=== PATIENT | female | born 2000 | race Caucasian/White ===

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

== ENCOUNTER 2020-02-02 02:16 | Emergency (ER) | payer BC, MEDICAID ==
[2020-02-02] MEDS ORDERED: LIDOCAINE (1%) 10 MG/1 ML VIAL 20 ML MDV INFILTRATI ONE (10:24)
--- NOTE | 2020-02-02 11:02 | Emergency Department Report ---
- General Chief Complaint: Wound/Laceration Stated Complaint: LT ARM INJURY Time Seen by Provider: 02/02/20 10:16 Source: patient Mode of arrival: Ambulatory Limitations: No Limitations - History of Present Illness Initial Comments: Patient is a 19-year-old female presents emergency room with complaints of a laceration to the left forearm that occurred around 12 AM. She states that she was cooking in the kitchen and accidentally cut herself with a kitchen knife. She states initially there was bleeding but it improved after she placed some gauze. She denies any numbness or weakness. She denies any foreign body sensation. She is able to move the arm and fingers that any difficulty. Patient denies any past medical history. No allergies to medications. She states that she was unsure of her last tetanus immunization but upon chart review she had a tdap in 2019. - Related Data Home Medications Medication Instructions Recorded Confirmed Last Taken Pnv No.95/Ferrous Fum/Folic AC 1 tab PO DAILY 05/08/18 05/08/18 Unknown [ Vitamins Tablet] Previous Rx's Medication Instructions Recorded Last Taken Type Ferrous Sulfate [Feosol 325 MG tab] 325 mg PO BID #60 tablet 05/09/18 Unknown Rx Ibuprofen [Motrin 600 MG tab] 600 mg PO Q6HR #30 tablet 05/09/18 Unknown Rx Vit-Fe Fumar-FA [ 1 each PO QDAY #30 tablet 05/09/18 Unknown Rx Vitamin] cephALEXin [Keflex] 500 mg PO Q12HR #10 cap 05/13/18 Unknown Rx cephALEXin [Keflex] 500 mg PO Q6HR #16 capsule 05/13/18 Unknown Rx Acetaminophen [Acetaminophen TAB] 500 mg PO Q6HR PRN #30 tablet 08/24/19 Unknown Rx Dicyclomine [Bentyl] 20 mg PO Q6H PRN #24 tablet 10/25/19 Unknown Rx Famotidine [Pepcid] 20 mg PO BID #60 tablet 10/25/19 Unknown Rx Ondansetron [Zofran ODT TAB] 4 mg PO Q6HR PRN #20 tab.rapdis 10/25/19 Unknown Rx Amoxicillin/Potassium Clav 1 each PO BID #10 tablet 11/05/19 Unknown Rx [Augmentin 875-125 Tablet] HYDROcodone/APAP 5-325 [[place] 1 each PO Q4H PRN #15 tablet 11/05/19 Unknown Rx 5-325 mg TAB] Ibuprofen [Motrin 600 MG tab] 600 mg PO Q8H PRN #14 tablet 02/02/20 Unknown Rx cephALEXin [Keflex] 500 mg PO QID 7 Days #28 cap 02/02/20 Unknown Rx Allergies Allergy/AdvReac Type Severity Reaction Status Date / Time No Known Allergies Allergy Verified 05/08/18 10:57 ED Review of Systems ROS: Stated complaint: LT ARM INJURY Other details as noted in HPI Comment: All other systems reviewed and negative ED Past Medical Hx - Past Medical History Previous Medical History?: Yes Hx Hypertension: No Hx Congestive Heart Failure: No Hx Diabetes: No Hx Deep Vein Thrombosis: No Hx Liver Disease: Yes (biliary colic, gallstones) Hx Renal Disease: No Hx Sickle Cell Disease: No Hx Seizures: No Hx Asthma: No Hx COPD: No Hx HIV: No - Surgical History Past Surgical History?: No - Social History Smoking Status: Never Smoker Substance Use Type: None - Medications Home Medications: Home Medications Medication Instructions Recorded Confirmed Last Taken Type Pnv No.95/Ferrous Fum/Folic AC 1 tab PO DAILY 05/08/18 05/08/18 Unknown History [ Vitamins Tablet] Ferrous Sulfate [Feosol 325 MG tab] 325 mg PO BID #60 tablet 05/09/18 Unknown Rx Ibuprofen [Motrin 600 MG tab] 600 mg PO Q6HR #30 tablet 05/09/18 Unknown Rx Vit-Fe Fumar-FA [ 1 each PO QDAY #30 tablet 05/09/18 Unknown Rx Vitamin] cephALEXin [Keflex] 500 mg PO Q12HR #10 cap 05/13/18 Unknown Rx cephALEXin [Keflex] 500 mg PO Q6HR #16 capsule 05/13/18 Unknown Rx Acetaminophen [Acetaminophen TAB] 500 mg PO Q6HR PRN #30 tablet 08/24/19 Unknown Rx Dicyclomine [Bentyl] 20 mg PO Q6H PRN #24 tablet 10/25/19 Unknown Rx Famotidine [Pepcid] 20 mg PO BID #60 tablet 10/25/19 Unknown Rx Ondansetron [Zofran ODT TAB] 4 mg PO Q6HR PRN #20 tab.rapdis 10/25/19 Unknown Rx Amoxicillin/Potassium Clav 1 each PO BID #10 tablet 11/05/19 Unknown Rx [Augmentin 875-125 Tablet] HYDROcodone/APAP 5-325 [[place] 1 each PO Q4H PRN #15 tablet 11/05/19 Unknown Rx 5-325 mg TAB] Ibuprofen [Motrin 600 MG tab] 600 mg PO Q8H PRN #14 tablet 02/02/20 Unknown Rx cephALEXin [Keflex] 500 mg PO QID 7 Days #28 cap 02/02/20 Unknown Rx ED Physical Exam - General Limitations: No Limitations General appearance: alert, in no apparent distress - Head Head exam: Present: atraumatic, normocephalic - Eye Eye exam: Present: normal appearance - ENT ENT exam: Present: mucous membranes moist - Respiratory Respiratory exam: Absent: respiratory distress, accessory muscle use - Extremities Exam Extremities exam: Present: other (4 cm linear laceration present to the left anterior forearm, no active bleeding, no muscle/tendon involvement, no foreign body, FROM of the LUE, no bony ttp, neurovascularly intact) - Neurological Exam Neurological exam: Present: alert, oriented X3 - Psychiatric Psychiatric exam: Present: normal affect, normal mood - Skin Skin exam: Present: warm, dry ED Course Vital Signs 02/02/20 02/02/20 04:51 11:17 Temperature 98.4 F 98.8 F Pulse Rate 90 93 H Respiratory 18 16 Rate Blood Pressure 101/64 123/70 O2 Sat by Pulse 98 98 Oximetry - Laceration /Wound Repair Left Anterior Arm Wound Location: upper extremity (left anterior forearm) Wound Length (cm): 4 Wound's Depth, Shape: superficial, linear Wound Explored: clean Irrigated w/ Saline (ccs): 500 Betadine Prep?: Yes Anesthesia: 1% Lidocaine Volume Anesthetic (ccs): 7 Wound Debrided: moderate Wound Repaired With: sutures Suture Size/Type: 4:0 Number of Sutures: 7 Layer Closure?: No Sterile Dressing Applied?: Yes Progress: Wound irrigated with saline and thoroughly scrubbed with Betadine, no signs of foreign body, no signs of muscle or tendon involvement, 7 cc of 1% lidocaine without epinephrine used as anesthetic, Betadine prep again, sterile drapes applied, 4-0 Prolene used for skin closure, 7 sutures placed, patient tolerated well, no complications, bleeding controlled, sterile dressing applied ED Medical Decision Making - Medical Decision Making Patient is a 19-year-old female presents emergency room with complaints of a laceration to the left forearm that occurred around 12 AM. She states that she was cooking in the kitchen and accidentally cut herself with a kitchen knife. She states initially there was bleeding but it improved after she placed some gauze. She denies any numbness or weakness. She denies any foreign body sensation. She is able to move the arm and fingers that any difficulty. Patient denies any past medical history. No allergies to medications. She states that she was unsure of her last tetanus immunization but upon chart review she had a tdap in 2019. Vitals are normal. On exam:4 cm linear laceration present to the left anterior forearm, no active bleeding, no muscle/tendon involvement, no foreign body, FROM of the LUE, no bony ttp, neurovascularly intact. Wound irrigated with saline and scrubbed with Betadine and repaired per procedure note without any complications. Patient given prescription for Keflex and ibuprofen. Advised patient Please take medication as prescribed. Please keep area clean, dry, covered. May wash with antibacterial soap and water and pat dry. No hot tub or pool. Follow-up with a primary care doctor for reexamination. Sutures need to be removed within 10 to 14 days. Return to emergency room for any new or worsening symptoms. Critical care attestation.: If time is entered above; I have spent that time in minutes in the direct care of this critically ill patient, excluding procedure time. ED Disposition Clinical Impression: Laceration of left forearm Qualifiers: Encounter type: initial encounter Qualified Code(s): S51.812A - Laceration without foreign body of left forearm, initial encounter Disposition: TO HOME OR SELFCARE Is pt being admited?: No Does the pt Need Aspirin: No Condition: Stable Instructions: Laceration Care, Adult, Sutured Wound Care Additional Instructions: Please take medication as prescribed. Please keep area clean, dry, covered. May wash with antibacterial soap and water and pat dry. No hot tub or pool. Follow-up with a primary care doctor for reexamination. Sutures need to be removed within 10 to 14 days. Return to emergency room for any new or worsening symptoms. [place] los medicamentos segn lo prescrito. Mantenga el antoni limpia, seca y cubierta. Puede lavarse con agua y jabn antibacteriano y secar. No hay jacuzzi ni piscina. Mariann un seguimiento con un mdico de atencin primaria para un nuevo examen. Las suturas deben retirarse dentro de los 10 a 14 kiser. Regrese a la lexy de emergencias por cualquier sntoma nuevo o que empeore. Prescriptions: cephALEXin [Keflex] 500 mg PO QID 7 Days #28 cap Ibuprofen [Motrin 600 MG tab] 600 mg PO Q8H PRN #14 tablet PRN Reason: Pain [facility] - [facility]-3 Days Time of Disposition: 11:03 Print Language: GERMAN
[2020-02-02 11:23] VITALS: BP 123/70
== END 2020-02-02 11:23 | disposition home or self-care (01) ==
LOC: ED 02:16
DX: S51.812A Laceration without foreign body of left forearm, initial encounter (principal); Z79.1 Long term (current) use of non-steroidal anti-inflammatories (NSAID); Z79.2 Long term (current) use of antibiotics; Z79.899 Other long term (current) drug therapy; W26.0XXA Contact with knife, initial encounter; Y93.89 Activity, other specified; Y92.89 Other specified places as the place of occurrence of the external cause; Y99.8 Other external cause status
CPT/HCPCS: 99282